=== PATIENT | male | born 1960 | race African-American/Black ===

== ENCOUNTER 2016-07-12 07:19 | Emergency (ER) | payer SELFPAY ==
[~2016-07-12] VITALS: Ht 175.3 cm; Wt 127.0 kg
[2016-07-12 07:54] VITALS: BP 140/89
== END 2016-07-12 08:23 | disposition home or self-care (01) ==
LOC: ER 07:26
DX: Z76.0 Encounter for issue of repeat prescription (principal); I10 Essential (primary) hypertension; F17.210 Nicotine dependence, cigarettes, uncomplicated
CPT/HCPCS: 99283

== ENCOUNTER 2016-08-21 16:38 | Emergency (ER) | payer SELFPAY ==
[~2016-08-21] VITALS: Ht 175.3 cm; Wt 127.0 kg
[2016-08-21] MEDS ORDERED: KETOROLAC 60MG/2ML VIAL IM ONE (22:30)
[2016-08-22 00:17] VITALS: BP 148/94
== END 2016-08-22 00:21 | disposition home or self-care (01) ==
LOC: ER 16:38
DX: L03.116 Cellulitis of left lower limb (principal); I10 Essential (primary) hypertension; F17.200 Nicotine dependence, unspecified, uncomplicated
CPT/HCPCS: 73590; 93971; 96372; 99284; J1885

== ENCOUNTER 2017-11-08 12:33 | Emergency (ER) | payer MEDICARE ==
[~2017-11-08] VITALS: Ht 175.3 cm; Wt 138.0 kg
[2017-11-08 14:04] VITALS: BP 150/87
[2017-11-08] MEDS ORDERED: TETRACAINE 0.5% OPHTH DROPS 4ML RIGHTEYE ONE (14:15)
[2017-11-08] MEDS ORDERED: FLUORESCEIN SODIUM 1MG/STRIP RIGHTEYE ONE (14:15)
== END 2017-11-08 14:46 | disposition home or self-care (01) ==
LOC: ER 14:27
DX: H57.11 Ocular pain, right eye (principal); H47.091 Other disorders of optic nerve, not elsewhere classified, right eye; I10 Essential (primary) hypertension
CPT/HCPCS: 99283

== ENCOUNTER 2022-02-20 07:40 | Emergency (ER) | payer MEDICARE ==
[~2022-02-20] VITALS: Ht 177.8 cm; Wt 140.0 kg
[2022-02-20] MEDS ORDERED: IPRATROPIUM BROMIDE (0.02%) 0.5MG/2.5ML NEB HHN STA (09:35)
[2022-02-20] MEDS ORDERED: METHYLPREDNISOLONE SOD SUCC 125 MG/2 ML VIAL IV STA (09:35)
[2022-02-20] MEDS ORDERED: MAGNESIUM 2 G PREMIX 50 ML IV ONE (09:45)
[2022-02-20] MEDS: ALBUTEROL (0.083%) 2.5MG/3ML NEB HHN SCH ×3 (09:54→11:00)
[2022-02-20 10:40] LABS: BASOPHILS % 0.5 % (0.0-2.0); HEMATOCRIT. 43.2 % (42.0-52.0); HEMOGLOBIN. 14.3 g/dL (14.0-18.0); LYMPHOCYTES % 11.5 % (20.0-50.0); MEAN CORPUSCULAR HEMOGLOBIN 26.4 pg (28.0-32.0); MEAN CORPUSCULAR VOLUME 79.5 fL (80.0-94.0); MEAN PLATELET VOLUME 8.3 fl (7.4-10.4); MONOCYTES % 13.2 % (2.0-8.0); NEUTROPHILS % 73.8 % (40.0-76.0); PLATELET 230 x1000/uL (130-400); RED BLOOD CELL COUNT 5.43 mill/uL (4.7-6.1); RED CELL DISTRIBUTION WIDTH 16.2 % (11.6-14.6)
[2022-02-20 10:48] LABS: CHLORIDE 99 mEq/L (98-107)
[2022-02-20] MEDS ORDERED: CEFTRIAXONE 1 G PREMIX 50 ML IV ONE (11:45)
[2022-02-20] MEDS ORDERED: AZITHROMYCIN 500MG/250ML 250 ML IV ONE (11:45)
[2022-02-20] MEDS ORDERED: ACETAMINOPHEN 325MG TABLET PO STA (11:45)
[2022-02-20] MEDS ORDERED: CLONIDINE 0.1MG TABLET PO PRN (15:00)
[2022-02-20] MEDS ORDERED: DIPHENHYDRAMINE 50MG/ML VIAL IV PRN (15:00)
[2022-02-20] MEDS ORDERED: GUAIFENESIN 200MG/10ML SUGAR FREE UDC PO PRN (15:00)
[2022-02-20] MEDS ORDERED: ONDANSETRON HCL 4MG/2ML INJ IV PRN (15:00)
[2022-02-20] MEDS ORDERED: ACETAMINOPHEN 325MG TABLET PO PRN (15:00)
[2022-02-20] MEDS ORDERED: IPRATROPIUM/ALBUTEROL 0.5-3(2.5)MG/3ML NEB HHN PRN (15:00)
[2022-02-20 16:00] VITALS: BP 123/61
[2022-02-20] MEDS ORDERED: ALBUTEROL (0.083%) 2.5MG/3ML NEB HHN SCH (16:00)
[2022-02-20] MEDS ORDERED: ENOXAPARIN 40MG/0.4ML SYR SUBCUT SCH (21:00)
[2022-02-24] MEDS ORDERED: TIOT18CA3 INH (10:35)
[2022-02-24] MEDS ORDERED: ALBU6.7H3 INH (10:35)
[2022-02-24] MEDS ORDERED: P20 MT (10:35)
[2022-02-24] MEDS ORDERED: LEVO-65 MT (10:35)
== END 2022-02-20 16:10 | disposition left against medical advice (07) ==
LOC: ER 07:40 → EDBEDREQ 10:59 → EDBEDREQTM 11:44 → EDBEDREQ 11:44 → ER 16:10 → CANBEDREQ 02-21 09:31
DX: J44.1 Chronic obstructive pulmonary disease with (acute) exacerbation (principal); J18.9 Pneumonia, unspecified organism; R06.03 Acute respiratory distress; N17.9 Acute kidney failure, unspecified; E87.1 Hypo-osmolality and hyponatremia; I11.0 Hypertensive heart disease with heart failure; I50.9 Heart failure, unspecified; F17.290 Nicotine dependence, other tobacco product, uncomplicated; Z20.822 Contact with and (suspected) exposure to COVID-19
CPT/HCPCS: 36415; 71045; 80053; 82962; 83605; 83880; 84145; 84484; 85025; 87040; 87426; 87804; 93005; 94640; 96365; 96367; 96368; 96375; 99291; J0456; J0696; J2930; J3475

== ENCOUNTER → 2025-02-26 | Outpatient (CLI) | payer MEDICARE, MEDICAID ==
[~2025-02-26] MED LIST: ALBU6.7H3 INH; LEVO-65 MT; P20 MT; TIOT18CA3 INH
== END | disposition home or self-care (01) ==
LOC: CT 10:28
PROVIDERS: ATTEND Internal Medicine Pulmonary Disease
DX: R91.1 Solitary pulmonary nodule (principal); J94.8 Other specified pleural conditions; I25.10 Atherosclerotic heart disease of native coronary artery without angina pectoris; F17.200 Nicotine dependence, unspecified, uncomplicated
CPT/HCPCS: 71250